=== PATIENT | female | born 1980 | race Caucasian/White ===

== ENCOUNTER 2018-03-26 08:00 | Emergency (ER) | payer BC ==
[2018-03-26 08:36] VITALS: BP 125/72
--- NOTE | 2018-03-26 09:02 | UC ---
Complaint Female HPI - HPI Summary HPI Summary: pain with urination, frequency x 2 days no fever, no chills, no back / flank pain - History Of Current Complaint Chief Complaint: UCGU Stated Complaint: URINARY Time Seen by Provider: 03/26/18 08:20 Hx Obtained From: Patient ?: Yes Onset/Duration: Gradual Onset, Lasting Days - 2, Still Present Timing: Constant Severity Initially: Moderate Severity Currently: Moderate Pain Intensity: 0 Character: Burning Aggravating Factor(s): Nothing Alleviating Factor(s): Nothing Associated Signs And Symptoms: Negative: Fever, Back Pain, Vaginal Bleeding/ Discharge, Vaginal Discharge, Nausea, Vomiting(# Of Episodes =), Genital Swelling, Genital Blisters, Retained Foregin Body (Specify) - Allergies/Home Medications Allergies/Adverse Reactions: Allergies Allergy/AdvReac Type Severity Reaction Status Date / Time codeine Allergy Itching Verified 03/26/18 08:27 Home Medications: Home Medications Cranberry Fruit Concentrate [Azo Cranberry Gummies Uri] 500 mg PO DAILY PRN 07/04 [History Confirmed 03/26/18] Famotidine [Pepcid AC] 10 mg PO DAILY 03/26/18 [History Confirmed 03/26/18] [place]-3 Fatty Acids/Fish Oil [Fish Oil 1,000 mg Capsule] 1 each PO DAILY [History Confirmed 03/26/18] Pnv No.95/Ferrous Fum/Folic AC [ Vitamin & Minera 28-0.8 mg] 1 tab PO DAILY 03/26/18 [History Confirmed 03/26/18] Vitamin B Complex TAB* [B Complex-50*] 1 tab PO DAILY 03/26/18 [History Confirmed 03/26/18] PMH/Surg Hx/FS Hx/Imm Hx Previously Healthy: Yes - Surgical History Surgical History: Yes Surgery Procedure, Year, and Place: R ovary- cyst removal. fibroids L breast. endometriosis - Family History Known Family History: Negative: Diabetes - Social History Alcohol Use: None Substance Use Type: None Smoking Status (MU): Never Smoked Tobacco Review of Systems Constitutional: Negative Skin: Negative Eyes: Negative ENT: Negative Respiratory: Negative Cardiovascular: Negative Gastrointestinal: Negative Genitourinary: Dysuria, Frequency Is Patient Immunocompromised?: No All Other Systems Reviewed And Are Negative: Yes Physical Exam Triage Information Reviewed: Yes Appearance: Well-Appearing, No Pain Distress, Well-Nourished Vital Signs: Initial Vital Signs Temp 98.7 F 03/26/18 08:31 Pulse 78 03/26/18 08:31 Resp 16 03/26/18 08:31 BP 125/72 03/26/18 08:31 Pulse Ox 99 03/26/18 08:31 Vital Signs Reviewed: Yes Eyes: Positive: Conjunctiva Clear ENT: Positive: Normal ENT inspection, Hearing grossly normal, Pharynx normal Neck exam: Normal Neck: Positive: Supple, Nontender, No Lymphadenopathy Respiratory: Positive: Chest non-tender, Lungs clear, Normal breath sounds Cardiovascular: Positive: RRR, No Murmur, Pulses Normal Abdominal Exam: Normal Abdomen Description: Positive: Nontender, Soft. Negative: CVA Tenderness (R), CVA Tenderness (L), Distended, Guarding Bowel Sounds: Positive: Present Complaint Female Dx - Differential Dx/Diagnosis Provider Diagnoses: UTI Discharge - Sign-Out/Discharge Documenting (check all that apply): Discharge/Admit/Transfer - Discharge Plan Condition: Stable Disposition: HOME Prescriptions: Cephalexin CAP* [Keflex 500 CAP*] 500 mg PO TID #21 cap Patient Education Materials: Urinary Tract Infection in (ED) Referrals: Brooke Nieves MD [Primary Care Provider] - 7 Days - Billing Disposition and Condition Condition: STABLE Disposition: Home
== END 2018-03-26 09:06 | disposition home or self-care (01) ==
LOC: UCCORT 08:00
DX: N39.0 Urinary tract infection, site not specified (principal); Z88.5 Allergy status to narcotic agent
CPT/HCPCS: 81003; 87086; 99212; G0463

== ENCOUNTER 2018-07-31 13:27 | Inpatient (IN) | payer BC ==
--- NOTE | 2018-07-31 15:27 | HP ---
General Information - General Information Maternal Age: 37 Grav: 1 Para: 0 SAB: 0 IEA: 0 Estimated Due Date: 07/05/18 Determined By: Early Ultrasound Maternal Blood Type and Rh: A Positive - Results this Serology/RPR Result: Non-Reactive Rubella Result: Immune HBsAg Result: Negative HIV Result: Negative GBS Culture Result: Negative Past Medical History Delivery History: See Records - Primigravida Pertinent Past Medical History: See Records - depression/ anxiety, endometriosis, fibrocystic disease of breast Pertinent Past Surgical History: See Records - ovarian cystectomy, lumpectomy left breast, laparoscopy, endometriosis Pertinent Family History: See Records - stroke, heart disease, ovarian cancer - Antepartal Records Antepartal Records: Reviewed, Complicated by: - IVF , age 37 at delivery Review of Systems Constitutional: Comfortable CV Complaint: No Respiratory: Shortness of Breath: No Gastrointestinal: No Nausea/Vomiting, Normal Bowel Movement Genitourinary: No Dysuria Musculoskeletal: No Complaint, No Epigastric Pain Neurological: No Headache, No Visual Changes Movement: Normal Exam Allergies/Adverse Reactions: Allergies codeine Allergy (Mild, Verified 07/31/18 14:59) Itching T-99.1, P-80, R-18, BP 141/86, O2-98% - Measurements Height: 5 ft 3 in Weight: 91.172 kg Weight in lbs: 201.510887 Body Mass Index (BMI): 35.6 Pre- Weight: 68.039 kg Weight Gained This : 51 lbs and 0 ozs - Exam Breast: Breast Exam Deferred CVA: No CVA Tenderness Extremities: Edema - Severe pitting edema feet to thighs Heart: Normal Rhythm/Heart Sounds HEENT: No Significant Findings Lungs: Clear Bilaterally Rectal: Rectal Exam Deferred Reflexes: DTR 2+ Thyroid: No Thyromegaly - Abdominal Exam Abdomen Exam: Non-Tender, Fundal Height Consistent with Dates - Ultrasound/Biophysical Profile Ultrasound Status: Not Done Targeted Exam Findings See L&D Outpatient Visit Provider Note for Findings: N/A Estimated Weight: 8# Cervical Exam: 5cm Effacement: 80% Station: -1 Presenting Part: Vertex Membrane Status: AROM Amniotic Fluid Evaluation: Clear Bleeding/Discharge: Bloody Show EFM Findings - External Monitor Findings Baseline Heart Rate: 120 External Monitor Findings: Accelerations Present, No Pattern of Variable or Late Decelerations, Variability Moderate, Baseline Stable Contractions: None Assessment/Plan - Assessment 37 year old at 40 6/7 weeks gestation with no evidence of acidemia here for augmentation of labor due to advanced dilation, post-dates, and severe bilateral edema. - Obstetrical Risk Factors Obstetrical Risk Factors: Post-Dates, Assisted Reproduction - Plan Plan: Induction, Admit - Anticipate Vaginal Delivery Plan Comment: Discussed options with pt, including initiating Pitocin augmentation vs AROM. Pt prefers AROM, as she has a preference for avoiding Pitocin if possible. Pt counseled on the risks of AROM including potential need to augment with Pitocin if ctx do not ensue, risk of infection if prolonged rupture of membranes. After discussing risks and benefits pt elects to proceed with AROM. - Date/Time of Admission Date of Admission: 07/31/18 Time of Admission: 14:47
[2018-07-31 16:48] LABS: Urine Appearance Cloudy; Urine Bacteria 1+ (Absent); Urine Bilirubin Negative (Negative); Urine Blood 2+ (Negative); Urine Color Yellow; Urine Glucose Negative (Negative); Urine Ketones 1+ (Negative); Urine Nitrite Negative (Negative); Urine Protein Negative (Negative); Urine Red Blood Cell 3+(>10/hpf) (Absent); Urine Specific Gravity 1.008 (1.010-1.030); Urine Squamous Epithelial Cell Present (Absent); Urine Urobilinogen Negative (Negative); Urine White Blood Cell 2+(11-20/hpf) (Absent)
--- NOTE | 2018-07-31 17:16 | PN ---
Progress Note - Progress Note Date of Service: 07/31/18 SOAP: Subjective: [Pt reports she is feeling contractions now, and that they are getting stronger and closer together. Currently reports ctx Q 5 minutes. Reports continued leaking of fluid. ] Objective: [BP persistently elevated, ranging from 123/86 to 141/86 FHR 130 by auscultation UC's every 3-5 minutes, mild to moderate in intensity Continued leaking of clear fluid UA negative for protein] Assessment: [37 year old at 40 6/7 weeks gestation with ruptured membranes in active labor Gestational HTN vs situational HTN vs preeclampsia] Plan: [IV started, labs collected including CBC, Type and Screen, CMP, uric acid Will continue intermittent monitoring of FHR, labor support]
[2018-07-31 17:31] LABS: ABS Basophils 0.1 10^3/ul (0-0.2); ABS Eosinophils 0.1 10^3/ul (0-0.6); ABS Lymphocytes 1.9 10^3/ul (1.0-4.8); ABS Monocytes 0.8 10^3/ul (0-0.8); ABS Neutrophils 13.7 10^3/ul (1.5-7.7); ABS Nucleated RBC 0 10^3/ul; Eosinophil % 0.3 % (0-6); Hematocrit 39 % (35-47); Hemoglobin 12.7 g/dl (12.0-16.0); Lymphocyte % 11.4 % (25-47); Mean Corpuscular HGB Conc 33 g/dl (31-36); Mean Corpuscular Hemoglobin 27 pg (27-31); Mean Corpuscular Volume 82 fL (80-97); Mean Platelet Volume 8.7 fL (7.4-10.4); Nucleated Red Blood Cells % 0; Platelet Count 249 10^3/ul (150-450); Red Blood Count 4.71 10^6/ul (4.00-5.40); Red Cell Distribution Width 16 % (10.5-15); White Blood Count 16.6 10^3/ul (3.5-10.8)
[2018-07-31 17:53] LABS: Albumin 3.4 g/dL (3.2-5.2); CO2 Carbon Dioxide 23 mmol/L (22-32); Calcium 9.1 mg/dL (8.6-10.3); Chloride 106 mmol/L (101-111); Sodium 137 mmol/L (135-145)
[2018-07-31 17:57] LABS: Anion Gap 8 mmol/L (2-11)
[2018-07-31 17:59] LABS: ALT 30 U/L (7-52); Albumin/Globulin Ratio 1.3 (1-3); Alkaline Phosphatase 143 U/L (34-104); BUN/Creatinine Ratio 12.7 (8-20); Blood Urea Nitrogen 7 mg/dL (6-24); EGFR African American 150.5 (>60); EGFR Non-African American 124.4 (>60); Globulin 2.6 g/dL (2-4); Glucose 94 mg/dL (70-100); Uric Acid 4.5 mg/dL (2.3-6.6)
--- NOTE | 2018-07-31 22:01 | PN ---
Progress Note - Progress Note Date of Service: 07/31/18 SOAP: Subjective: [Pt feeling a lot of discomfort with ctx, coping well. Has tried various positions, shower. Declines pain meds. Feels active movement. Still leaking clear fluid. ] Objective: [FHR 140, moderate variability, + accels, no decels noted UC's every 2-4 minutes, moderate strength, lasting 60-80 seconds Afebrile Previous cervical exam showed pt 6cm/ 80%/ 0 station at 1940, now 6-7 cm/ 100%/ 0 station ] Assessment: [Pt in active labor, slow progress. FHR Cat I, no evidence of acidemia.\ ] Plan: [Will continue to try different positions, may try nitrous or receive epidural if desired.]
[2018-07-31] MEDS ORDERED: Calcium Carbonate CHEW TAB* 500 MG (TUMS) PO ONE (22:17)
[2018-08-01] MEDS ORDERED: OBEPIDURAL* 250 ML EPIDURAL ONE (00:49)
--- NOTE | 2018-08-01 01:03 | PN ---
Progress Note - Progress Note Date of Service: 08/01/18 SOAP: Subjective: [Pt extremely uncomfortable with ctx, moaning. Has tried many positions. After discussing options for pain felief, pt requests epidural. ] Objective: [EFM: FHR 140, + accels, no decels, moderate variability Cervix: 7cm/ 100%/ 0 station/ vtx UC's 2-3 minutes moderate to strong Fluid clear] Assessment: [Pt in active labor, minimal progress since last exam, very tired and ready for epidural. FHR with no evidence of acidemia] Plan: [Dr. Hernandez paged for epidural. Will continue position changes, evaluate ctx pattern for adequacy. ]
[2018-08-01] MEDS ORDERED: Famotidine TAB* 20 MG PO PRN (01:23)
[2018-08-01] MEDS ORDERED: Phenylephrine IV* 40 MCG/ML 10 ML SYRINGE IV PUSH PRN ×2 (01:23)
[2018-08-01] MEDS ORDERED: EPHEDrine (Pressors)* 50 MG/ML VIAL IV PUSH PRN ×2 (01:23)
[2018-08-01] MEDS ORDERED: Lactated Ringers 1000 ML Bag* 1,000 ML IV ONE (01:23)
[2018-08-01] MEDS ORDERED: Sodium Citrate/Citric Acid* 15 ML UDC PO PRN (01:23)
[2018-08-01] MEDS ORDERED: OBEPIDURAL* 250 ML EPIDURAL SCH (02:00)
[2018-08-01] MEDS: Lactated Ringers 1000 ML Bag* 1,000 ML IV SCH ×2 (02:14→04:39)
--- NOTE | 2018-08-01 02:25 | PN ---
Progress Note - Progress Note Date of Service: 08/01/18 SOAP: Subjective: [Pt now comfortable with epidural, trying to rest. ] Objective: [FHR: Baseline 130 / + accels/ no decels/ moderate variability UC's Q 2-4 minutes BPs remain elevated at 142/84 ] Assessment: [37 year old at 41 0/7 weeks gestation in active labor w/ slow progress. No evidence of acidemia] Plan: [Now that pt is comfortable, will encourage her to rest and recheck cervix in 1- [address] Ortiz. ]
[2018-08-01] MEDS ORDERED: Oxytocin in LR* 20 UNITS/1,000 ML BAG IVPB SCH (05:00)
[2018-08-01] MEDS: Levothyroxine TAB* 25 MCG TAB PO SCH (07:00)
[2018-08-01] MEDS ORDERED: Ondansetron INJ* 2 MG/ML VIAL ONE ×2 (07:17→11:00)
[2018-08-01] MEDS ORDERED: Acetaminophen SUPP* 650 MG SUPP PR ONE (08:08)
[2018-08-01] MEDS ORDERED: Acetaminophen SUPP* 650 MG SUPP ONE (08:08)
[2018-08-01] MEDS: Ampicillin ADVAN(*) 2 GM in NS 0.9% 100 ML* 100 ML IVPB SCH ×3 (08:27→21:21)
[2018-08-01] MEDS ORDERED: Sodium Citrate/Citric Acid* 15 ML UDC ONE (08:46)
[2018-08-01] MEDS: NS 0.9% IVPB SCH ×2 (08:55→17:11)
[2018-08-01] MEDS: GENTAMICIN ADULT IVPB SCH ×2 (08:55→17:11)
[2018-08-01] MEDS ORDERED: ceFAZolin 2 GM PREMIX in ORs 2 GM/50 ML BAG IVPB ONE ×2 (09:27→10:00)
[2018-08-01] MEDS ORDERED: KETAMINE HCL* 50 MG/ML 10 ML VIAL ONE (10:03)
[2018-08-01] MEDS ORDERED: OXYTOCIN* 10 UNITS/ML 1 ML VIAL ONE (11:00)
[2018-08-01] MEDS ORDERED: Ketorolac INJ* 30 MG/ML 1 ML VIAL ONE (11:00)
[2018-08-01] MEDS ORDERED: DiMENhydriNATE IV* 50 MG/ML VIAL IV PUSH PRN (11:06)
[2018-08-01] MEDS ORDERED: Acetaminophen IV 1GM/100ML * 1,000 MG/100 ML VIAL IVPB ONE (11:06)
[2018-08-01] MEDS ORDERED: HYDROmorphone INJ1* 1 MG/ML SYRINGE IV PRN (11:06)
[2018-08-01] MEDS ORDERED: Glycerin ADULT SUPP PR PRN (11:42)
[2018-08-01] MEDS ORDERED: Dibucaine 1% 28.35 GM TUBE PR PRN (11:42)
[2018-08-01] MEDS ORDERED: Witch Hazel PAD* JAR TOPICAL PRN (11:42)
[2018-08-01] MEDS ORDERED: Acetaminophen TAB* 325 MG PO PRN (11:42)
[2018-08-01] MEDS ORDERED: oxyCODONE/Acetamin 5/325 MG* TAB PO PRN (11:42)
[2018-08-01] MEDS ORDERED: Lactated Ringers 1000 ML Bag* 1,000 ML IV SCH (12:00)
[2018-08-01] MEDS: HYDROmorphone INJ* 0.5 MG/0.5 ML SYRINGE IV PRN ×2 (12:22→12:40)
[2018-08-01] MEDS ORDERED: Gentamicin ADULT (*) 40 MG/ML VIAL (2 ML VIAL = 80 MG) IVPB SCH (14:00)
[2018-08-01] MEDS ORDERED: NS 0.9% 100 ML* 0 ML ONE (15:14)
[2018-08-01] MEDS: Docusate CAP* 100 MG PO SCH ×2 (15:18→21:21)
[2018-08-01] MEDS: oxyCODONE/Acetamin 5/325 MG* TAB PO PRN ×2 (15:18→20:19)
[2018-08-01] MEDS: Simethicone TAB* 80 MG TAB.CHEW PO SCH ×3 (15:19→21:21)
[2018-08-01] MEDS: Ibuprofen TAB* 600 MG PO PRN (17:55)
[2018-08-01] MEDS ORDERED: NS 0.9% 100 ML* 100 ML ONE (21:07)
[2018-08-02] MEDS: Ibuprofen TAB* 600 MG PO PRN ×4 (00:47→19:58)
[2018-08-02] MEDS: oxyCODONE/Acetamin 5/325 MG* TAB PO PRN ×4 (00:47→21:11)
[2018-08-02] MEDS: GENTAMICIN ADULT IVPB SCH ×2 (00:48→09:35)
[2018-08-02] MEDS: NS 0.9% IVPB SCH ×2 (00:48→09:35)
[2018-08-02] MEDS: Ampicillin ADVAN(*) 2 GM in NS 0.9% 100 ML* 100 ML IVPB SCH ×2 (04:46→08:49)
[2018-08-02] MEDS: Levothyroxine TAB* 25 MCG TAB PO SCH (05:08)
--- NOTE | 2018-08-02 05:13 | OP ---
DATE OF OPERATION: 08/01/18 - MCHOB-103 DATE OF : 80 SURGEON: Concepcion Piedra MD. ASSISTANTS: Sharri Blanco CNM. PRE-OP DIAGNOSES: Intrauterine gestation at 41+ weeks' gestational age, arrest of dilation, category 2 heart tracing, chorioamnionitis. POST-OP DIAGNOSES: Intrauterine gestation at 41+ weeks' gestational age, arrest of dilation, category 2 heart tracing, chorioamnionitis. OPERATIVE PROCEDURE: Primary low transverse section. ESTIMATED BLOOD LOSS: 600 mL. FLUIDS: Crystalloid. DRAINS: Cadet catheter. FINDINGS: Male . Weight 9 pounds 2 ounces. Apgars 8 and 9. Normal appearing placenta and cord. Normal appearing uterus, ovaries, and tubes. No obvious evidence of endometriosis. INDICATIONS: The patient presented to Labor and Delivery with advanced dilation and slowly progressed to labor to about 7 cm. She had previously received an epidural which was no longer giving adequate pain control and even after attempt at re-dosing of the epidural, she was not receiving adequate pain control. She had been 7 cm for more than 3 hours and had developed tachycardia and maternal temp. Therefore, the decision was made to proceed with primary section. DESCRIPTION OF PROCEDURE: After informed consent was signed, the patient was taken to the operating room where she was given spinal anesthesia that was found to be adequate. She was prepped and draped in the dorsal supine position with a leftward tilt. She already had the Cadet catheter in place. SCDs were placed on her legs. A time-out was then performed. A Pfannenstiel skin incision was then made with a scalpel and carried down to the underlying layer of fascia with blunt dissection. The fascia was incised on either side in the midline and the fascial incision extended laterally with sharp dissection with the Walker scissors. The inferior edge of the fascial incision was grasped with Macy clamps, tented up and dissected down bluntly. Then the superior edge of the fascial incision was grasped with Macy clamps, tented up and dissected down bluntly. The rectus muscles were in the midline and the peritoneum was entered bluntly. On entry into the abdominal cavity, a very distended bladder was noted, therefore, the nurse was able to adjust the Cadet catheter so that it began draining again and the bladder was no longer distended. A bladder blade was then inserted and a transverse incision was made in the lower uterine segment with the scalpel. The incision was extended superior and inferiorly with blunt pressure. The infant's head was brought up to the incision and delivered with fundal pressure, followed by the shoulders, and the rest of the body. The cord was milked towards the baby, then clamped x2 and cut. A second segment of cord was clamped and passed off for cord blood gases. The placenta then delivered with fundal massage and gentle cord traction. The uterus was exteriorized and cleared of clots and debris. The uterine incision was then closed with 0 Vicryl in a running locked fashion with the second layer of suture imbricating the first. By the time the uterine incision was closed, good tone was noted in the uterus and the incision appeared hemostatic. The abdomen was then irrigated and the uterus was placed back into the abdominal cavity. The incision was inspected and good hemostasis was noted. Peritoneum was then closed with 3-0 Vicryl in a running unlocked fashion. The fascia was closed with 0 Vicryl in a running unlocked fashion. 3- 0 Vicryl was used in interrupted sutures to reapproximate the subcuticular layer , in 4 sutures. The skin was then closed with 4-0 Monocryl in a running subcuticular fashion. Mastisol and Steri-Strips were placed. The incision was dressed. The patient was cleaned and moved to the stretcher and taken to the recovery room in stable condition. [id number]/[facility] #: [id number] [place]
[2018-08-02 08:14] LABS: Hematocrit 30 % (35-47); Hemoglobin 9.7 g/dl (12.0-16.0); Mean Corpuscular HGB Conc 32 g/dl (31-36); Mean Corpuscular Hemoglobin 27 pg (27-31); Mean Corpuscular Volume 83 fL (80-97); Mean Platelet Volume 8.9 fL (7.4-10.4); Platelet Count 206 10^3/ul (150-450); Red Blood Count 3.61 10^6/ul (4.00-5.40); Red Cell Distribution Width 16 % (10.5-15)
[2018-08-02] MEDS: Docusate CAP* 100 MG PO SCH ×3 (08:48→21:09)
[2018-08-02] MEDS: Simethicone TAB* 80 MG TAB.CHEW PO SCH ×3 (08:49→21:10)
[2018-08-02] MEDS: Ferrous Gluconate TAB* 324 MG TAB PO SCH ×2 (08:49→21:09)
[2018-08-02 09:06] LABS: ABS Basophils 0 10^3/ul (0-0.2); ABS Eosinophils 0.1 10^3/ul (0-0.6); ABS Lymphocytes 1.7 10^3/ul (1.0-4.8); ABS Monocytes 1.4 10^3/ul (0-0.8); ABS Neutrophils 23.8 10^3/ul (1.5-7.7); ABS Nucleated RBC 0 10^3/ul; Eosinophil % 0.2 % (0-6); Lymphocyte % 6.4 % (25-47); Nucleated Red Blood Cells % 0
--- NOTE | 2018-08-02 21:36 | PN ---
Progress Note - Progress Note Date of Service: 08/01/18 - Note reflects care provided 08/01/18 Note: This note is intended to summarize the care provided to this patient on from the time following the last documented progress note [facility] 08/01/18 0430 S:Pt comfortable with epidural, has been sleeping intermittently O:FHR Cat I (baseline 145, moderate variability, no decelerations, + accels) UCs 2-4 minutes, 30-60 seconds Cervical exam: 7cm/ 100%/ 0 station, fluid clear VS: T- 98.2, P-99, R-18, BP-130/88 A:Minimal progress since last exam. Vital signs stable. No evidence of acidemia. Pt wishes to continue trying to achieve full dilation. P: Will initiate Pitocin augmentation. Continuous EFM per protocol. Will try rotating side to side with peanut ball. 08/01/18 0630 S: Unable to assess pt in person as pushing with another pt. RN reports that pt more uncomfortable despite epidural. RN performed cervical exam, appears unchanged. Recommended pt try using bolus button on epidural. O: VS: T-97.3, P-110, R-18, BP-130/67 FHR: Baseline 150, moderate variability, no accels, no decels UCs: 3-4 minutes, 60 seconds A: Apparent continued lack of progress. FHR Cat I with no evidence of acidemia P: Requested RN notify Dr. Ortiz of continued lack of progress. Anticipate possible recommendation of delivery. If pt wishes to continue will consider placing IUPC to determine adequacy of ctx. 08/01/18 0715 S: Per RN, pt complaining of nausea and vomited several times. Requests antiemetic. Reports use of bolus button helping pt feel more comfortable. O: VS: BP 138/81, P-105 FHR: Baseline 150, moderate variability, no accels, no decels UCs: Q 2-5 minutes. Per RN Pitocin just started at 0700 A: Pt w/ possible arrest of dilation, has just begun Pitocin augmentation. No evidence of acidemia. Use of bolus button helping with pain. P: Verbal order for Zofran 4mg to treat nausea and vomiting. Continue Pitocin augmentation. 08/01/18 0800 S: Per RN pt again very uncomfortable, despite use of bolus button. Vomiting resolved. O: FHR: Elevation of baseline to 170 bpm, + accels, moderate variability, isolated decel, unclear early or late as ctx not tracing due to pt position VS: T-98.9, P-125, R-22, BP-99/79 UCs: unable to determine frequency Cervical exam: Per RN dilation 8-9cm, 100%, 0 station A: and maternal tachycardia, possible change in dilation P: RN requested to notify MD of elevation in FHR. Anesthesiologist paged to bolus pt's epidural. Closely monitor temp. Reevaluate cervical exam as soon as possible. If no change consider consulting with MD for possible delivery. Report to Noreen Blanco CNM, oncoming research chemist.
[2018-08-03] MEDS: Ibuprofen TAB* 600 MG PO PRN ×3 (02:05→15:16)
[2018-08-03] MEDS: oxyCODONE/Acetamin 5/325 MG* TAB PO PRN ×2 (02:05→12:55)
[2018-08-03] MEDS: Levothyroxine TAB* 25 MCG TAB PO SCH (06:05)
[2018-08-03] MEDS: Simethicone TAB* 80 MG TAB.CHEW PO SCH ×2 (07:56→12:55)
[2018-08-03] MEDS: Ferrous Gluconate TAB* 324 MG TAB PO SCH (07:56)
[2018-08-03] MEDS: Docusate CAP* 100 MG PO SCH ×2 (07:56→12:55)
[2018-08-03 08:31] VITALS: BP 149/68
[2018-08-03 12:37] LABS: ABS Basophils 0 10^3/ul (0-0.2); ABS Eosinophils 0.2 10^3/ul (0-0.6); ABS Lymphocytes 1.8 10^3/ul (1.0-4.8); ABS Monocytes 0.6 10^3/ul (0-0.8); ABS Neutrophils 15.7 10^3/ul (1.5-7.7); ABS Nucleated RBC 0 10^3/ul; Hematocrit 31 % (35-47); Hemoglobin 10.1 g/dl (12.0-16.0); Lymphocyte % 9.6 % (25-47); Mean Corpuscular HGB Conc 33 g/dl (31-36); Mean Corpuscular Hemoglobin 27 pg (27-31); Mean Corpuscular Volume 83 fL (80-97); Mean Platelet Volume 8.1 fL (7.4-10.4); Nucleated Red Blood Cells % 0; Platelet Count 283 10^3/ul (150-450); Red Cell Distribution Width 16 % (10.5-15); White Blood Count 18.3 10^3/ul (3.5-10.8)
== END 2018-08-03 16:15 | disposition home or self-care (01) | DRG 540 ==
LOC: MCHOBOUT 13:27 → MCHOB 14:47
PROVIDERS: ADMIT Midwife; ATTEND Obstetrics & Gynecology
PROC: 10907ZC Drainage of Amniotic Fluid, Therapeutic from Products of Conception, Via Natural or Artificial Opening (ICD-10-PCS; principal; 2018-07-31)
PROC: 3E033VJ Introduction of Other Hormone into Peripheral Vein, Percutaneous Approach (ICD-10-PCS; 2018-07-31)
PROC: 4A1HXCZ Monitoring of Products of Conception, Cardiac Rate, External Approach (ICD-10-PCS; 2018-07-31)
PROC: 10D00Z1 Extraction of Products of Conception, Low, Open Approach (ICD-10-PCS; 2018-08-01)
DX: O48.0 Post-term pregnancy (principal); O99.42 Diseases of the circulatory system complicating childbirth; O41.1230 Chorioamnionitis, third trimester, not applicable or unspecified; O62.1 Secondary uterine inertia; O76 Abnormality in fetal heart rate and rhythm complicating labor and delivery; R00.0 Tachycardia, unspecified; O99.284 Endocrine, nutritional and metabolic diseases complicating childbirth; E03.9 Hypothyroidism, unspecified; O12.04 Gestational edema, complicating childbirth; Z37.0 Single live birth; Z3A.41 41 weeks gestation of pregnancy; Z88.5 Allergy status to narcotic agent; O75.89 Other specified complications of labor and delivery; R11.2 Nausea with vomiting, unspecified
CPT/HCPCS: 36415; 80053; 81003; 81015; 84550; 85025; 86850; 86900; 86901; 87086; 88307; A9270-GY; J0690; J1170; J1580; J1885; J2405; J2590